=== PATIENT | female | born 1950 | race Caucasian/White ===

== ENCOUNTER → 2016-09-14 | Outpatient (CLI) | payer BC ==
[2016-09-14 09:35] LABS: BASO % 1.5 %; BASO ABS # 0.09 K/uL (0-0.2); COMPLETE YES; EOS % 5.5 %; HEMATOCRIT 39.6 % (37-47); IG% 0.2 %; LYMPH % 23.3 %; LYMPH ABS # 1.36 K/uL (1.2-3.4); MEAN CELL VOLUME 88.8 fL (80-100); MEAN CORPUSCULAR HGB CONC 33.8 g/dl (32-36); MEAN PLATELET VOLUME 9.8 fL (7.4-10.4); MONO % 11.6 %; NEUT % 57.9 %; PLATELET COUNT 244 K/uL (130-400); RED BLOOD COUNT 4.46 M/uL (4.2-5.4); WHITE BLOOD COUNT 5.84 K/uL (4.8-10.8)
[2016-09-14 10:00] LABS: ALT/SGPT 21 U/L (12-78); BLOOD UREA NITROGEN 16 mg/dl (7-18); BUN/CREATININE RATIO 22.2 (10-20); CALCIUM 9.2 mg/dl (8.5-10.1); CARBON DIOXIDE 29 mmol/L (21-32); CHLORIDE 105 mmol/L (98-107); CHOLESTEROL 237 mg/dl (0-200); CREATININE 0.72 mg/dl (0.60-1.20); GLUCOSE 101 mg/dl (70-99); POTASSIUM 3.9 mmol/L (3.5-5.1); SODIUM 141 mmol/L (136-145); TRIGLYCERIDES 73 mg/dl (0-150); VERY LOW DENSITY LIPOPROT CALC 15 mg/dl
[2016-09-14 10:02] LABS: ESTIMATED AVERAGE GLUCOSE 123 mg/dl; HA1C FLAG Normal (Normal)
[2016-09-14 10:09] LABS: ALB/GLOB RATIO 1.1 (0.9-2); ALKALINE PHOSPHATASE 79 U/L (45-117); AST/SGOT 17 U/L (15-37); CHOLESTEROL/HDL RATIO 2.7; HDL CHOLESTEROL 88 mg/dl; LDL CHOLESTEROL CALCULATED 134 mg/dl
[2016-09-15 14:31] LABS: C-REACTIVE PROT HIGHSEN 1.9 MG/L
== END | disposition home or self-care (01) ==
LOC: C.LAB 08:42
PROVIDERS: ATTEND Family Medicine
DX: R73.09 Other abnormal glucose (principal)

== ENCOUNTER → 2016-09-16 | Outpatient (CLI) | payer BC ==
--- NOTE | 2016-09-16 12:49 | MAMMOGRAPHY REPORT ---
BILATERAL DIGITAL SCREENING MAMMOGRAM WITH CAD: 09/16/2016 CLINICAL HISTORY: Routine screening. Patient has no complaints. TECHNIQUE: Current study was also evaluated with a Computer Aided Detection (CAD) system. Bilatera l CC and MLO views were obtained. COMPARISON: Comparison is made to exams dated: 09/16/2015 mammogram, 09/25/2014 mammogram, 09/12/2014 m ammogram, 09/11/2013 mammogram, 09/06/2012 mammogram, and 09/03/2011 mammogram - [facility]. BREAST COMPOSITION: There are scattered areas of fibroglandular density in both breasts. FINDINGS: No suspicious masses, calcifications, or areas of architectural distortion are noted in e ither breast. There has been no significant interval change compared to prior exams. IMPRESSION: ACR BI-RADS CATEGORY 1: NEGATIVE There is no mammographic evidence of malignancy. A 1 year screening mammogram is recommended. The p atient will receive written notification of the results. Approximately 10% of breast cancers are not detected with mammography. A negative mammographic repor t should not delay biopsy if a clinically suggestive mass is present. Julieta Montano M.D. /:09/16/2016 09:12:01 Machine Crater: Jaycee FLOYD(Valerie)(Love), [facility] letter sent: Normal 1/2 BI-RADS Code: ACR BI-RADS Category 1: Negative
== END | disposition home or self-care (01) ==
LOC: C.MAMM 08:49
PROVIDERS: ATTEND Obstetrics & Gynecology
DX: Z12.31 Encounter for screening mammogram for malignant neoplasm of breast (principal)

== ENCOUNTER → 2016-10-01 | Outpatient (CLI) | payer BC ==
[~2016-10-01] MED LIST: GADAVIST IV PRN
--- NOTE | 2016-10-01 15:05 | DIAGNOSTIC IMAGING REPORT ---
MRI OF THE BRAIN WITHOUT AND WITH IV CONTRAST CLINICAL HISTORY: Right temporal lesion. COMPARISON STUDY: March 2013 TECHNIQUE: MRI of the brain was performed from the vertex to the skull base utilizing various T1 and T2 weighted sequences. Following the IV administration of 7 mL of Gadavist contrast, additional enhanced images were obtained. FINDINGS: Sagittal T1, axial diffusion, proton density and T2 weighted axial, coronal FLAIR, and pre and post axial T1-weighted images were acquired. These were supplemented with post gadolinium coronal T1 weighted images. No intra or extra-axial mass lesions are visualized. Axial diffusion-weighted images reveal no evidence of acute or subacute infarction. There is no evidence of ventricular dilatation. Proton density T2-weighted and FLAIR images reveal no significant intraparenchymal signal abnormalities. There are no abnormal flow voids. There is no significant intraparenchymal enhancement. There is a stable 5 mm enhancing T1 and FLAIR bright lesion with thin the inner table of the right temporal calvarium. This is of doubtful clinical significance given the 3 1/2 year stability. IMPRESSION: 1. No acute intracranial findings 2. No evidence of intracranial mass 3. No evidence of acute or subacute infarction 4. Stable 5 mm lesion within the right temporal calvarium. This is not felt to be of clinical significance. Electronically signed by: Dayron Potter M.D. 10/01/2016 3:03 PM Dictated Date/Time: 10/01/2016 2:59 PM
== END | disposition home or self-care (01) ==
LOC: C.MRIBC 13:55
PROVIDERS: ATTEND Family Medicine
DX: G93.9 Disorder of brain, unspecified (principal)

== ENCOUNTER → 2016-10-12 | Outpatient (CLI) | payer BC | END | disposition home or self-care (01) | LOC: C.PAPS 11:29 | PROVIDERS: ATTEND Obstetrics & Gynecology | DX: Z01.419 Encounter for gynecological examination (general) (routine) without abnormal findings (principal); N95.8 Other specified menopausal and perimenopausal disorders ==

== ENCOUNTER → 2017-09-20 | Outpatient (CLI) | payer OTHER ==
--- NOTE | 2017-09-22 07:49 | MAMMOGRAPHY REPORT ---
BILATERAL DIGITAL SCREENING MAMMOGRAM TOMOSYNTHESIS WITH CAD: 09/20/2017 CLINICAL HISTORY: Routine screening. Patient has no complaints. TECHNIQUE: Breast tomosynthesis in addition to standard 2D mammography was performed. Current study was also evaluated with a Computer Aided Detection (CAD) system. COMPARISON: Comparison is made to exams dated: 09/16/2016 mammogram, 09/16/2015 mammogram, 09/12/2014 m ammogram, 09/11/2013 mammogram, 09/06/2012 mammogram - [facility], and 08/16/2008. BREAST COMPOSITION: There are scattered areas of fibroglandular density in both breasts. FINDINGS: The parenchymal pattern is unchanged. No developing mass, architectural distortion or clus ter of suspicious microcalcifications is seen in either breast. IMPRESSION: ACR BI-RADS CATEGORY 2: BENIGN There is no mammographic evidence of malignancy. A 1 year screening mammogram is recommended. The pa tient will receive written notification of the results. Approximately 10% of breast cancers are not detected with mammography. A negative mammographic report should not delay biopsy if a clinically suggestive mass is present. Yesica Brown M.D. ay/:09/20/2017 20:12:33 Cell Plasterer: Tiffani FLOYD(Valerie)(Love), [facility] letter sent: Normal 1/2 BI-RADS Code: ACR BI-RADS Category 2: Benign
== END | disposition home or self-care (01) ==
LOC: C.MAMM 08:44
PROVIDERS: ATTEND Obstetrics & Gynecology
DX: Z12.31 Encounter for screening mammogram for malignant neoplasm of breast (principal)

== ENCOUNTER → 2017-10-25 | Outpatient (CLI) | payer OTHER | END | disposition home or self-care (01) | LOC: C.PAPS 15:35 | PROVIDERS: ATTEND Obstetrics & Gynecology | DX: Z12.4 Encounter for screening for malignant neoplasm of cervix (principal); Z11.51 Encounter for screening for human papillomavirus (HPV); Z87.410 Personal history of cervical dysplasia ==

== ENCOUNTER → 2018-01-30 | Outpatient (CLI) | payer OTHER | END | disposition home or self-care (01) | LOC: C.MAMM 08:40 | PROVIDERS: ATTEND Family Medicine | DX: M81.0 Age-related osteoporosis without current pathological fracture (principal) ==

== ENCOUNTER 2019-12-09 10:10 | Inpatient (IN) ==
[2019-12-09] MEDS ORDERED: methylPREDNISolone 1,000 MG in DEXTROSE 5% 250 ML IV STA (10:27)
[2019-12-09 10:47] LABS: Hematocrit (blood only) 35.8 % (37-47); Hemoglobin 11.9 g/dL (12.0-16.0); Mean Corpuscular Hemoglobin 29.5 pg (25-34); Mean Corpuscular Hgb Conc 33.2 g/dL (32-36); Mean Corpuscular Volume 88.8 fL (80-100); Mean Platelet Volume 9.4 fL (7.4-10.4); Platelet Count 423 K/uL (130-400); RDW Coefficient of Variation 14.6 % (11.5-14.5); RDW Standard Deviation 47.4 fL (36.4-46.3); Red Blood Count 4.03 M/uL (4.2-5.4)
[2019-12-09 11:01] LABS: INR 1.1 (0.9-1.1); Partial Thromboplastin Ratio 1.1; Partial Thromboplastin Time 30.8 Seconds (21.0-31.0); Prothrombin Time 11.1 Seconds (9.0-12.0)
[2019-12-09 11:04] LABS: Alanine Aminotransferase 21 U/L (12-78); Albumin Level 3.2 gm/dl (3.4-5.0); Aspartate Aminotransferase 9 U/L (15-37); BUN Creatinine Ratio 18.5 (10-20); Blood Urea Nitrogen 14 mg/dl (7-18); Calcium 9.4 mg/dl (8.5-10.1); Carbon Dioxide 30 mmol/L (21-32); Chloride 101 mmol/L (98-107); Creatinine Clr Calc Pharmacy 68.8 ml/min; Est GFR (African American) 95.1; Est GFR (Non-African American) 82.1; Glucose 146 mg/dl (70-99); Magnesium 2.3 mg/dl (1.8-2.4); Potassium 3.6 mmol/L (3.5-5.1); Sodium 136 mmol/L (136-145)
--- NOTE | 2019-12-09 11:06 | XRay Report ---
XR chest 1V portable HISTORY: 68 years-old Female stroke eval acute strokelike symptoms COMPARISON: None TECHNIQUE: Portable AP view of the chest FINDINGS: Cardiac silhouette is normal. There is an opacity of the medial right lung base. No pneumothorax, ple ural effusion or overt pulmonary edema. Bones appear grossly intact. IMPRESSION: Medial right lung base opacities suggestive of a prominent epicardial fat pad. Focal area of consolidation is considered less likely. ACT 112: Negative or not required by law. The above report was generated using voice recognition software. It may contain grammatical, syntax o r spelling errors. Electronically signed by: Antonio Nash M.D. 12/09/2019 11:05 AM
[2019-12-09 11:09] LABS: Albumin Globulin Ratio 0.7 (0.9-2); Alkaline Phosphatase 81 U/L (45-117); Basophils # (auto) 0.02 K/uL (0-0.2); Basophils % (auto) 0.1 %; Bilirubin,Total 0.3 mg/dl (0.2-1); Eosinophils # (auto) 0.01 K/uL (0-0.5); Eosinophils % (auto) 0.1 %; Globulin 4.8 gm/dl (2.5-4.0); Immature Granulocytes # (auto) 0.08 K/uL (0.00-0.02); Immature Granulocytes % (auto) 0.5 %; Lymphocytes # (auto) 0.53 K/uL (1.2-3.4); Lymphocytes % (auto) 3.2 %; Monocytes # (auto) 0.32 K/uL (0.11-0.59); Monocytes % (auto) 1.9 %; Neutrophils # (auto) 15.74 K/uL (1.4-6.5); Neutrophils % (auto) 94.2 %; RBC Morphology Unremarkable; Troponin I < 0.015 ng/ml (0-0.045)
--- NOTE | 2019-12-09 11:13 | Emergency Department Note ---
Impression & Plan Vasculitis, CRAO (central retinal artery occlusion), Loss of vision ED Provider Note NAME: BECKY WORKMAN AGE: 68 SEX: F ARRIVES VIA: Walk-In INFORMANT: [Patient] ED PROVIDER(S): Homer Lorenzana MD CHIEF COMPLAINT: Vision loss PLAN: Disposition: Admitted Condition: [Good] MEDICAL DECISION MAKING: Patient presented to the emergency department because of vision loss and findings concerning for central retinal artery occlusion. The patient was directed to the ER by her senior water/wastewater engineer, Dr. Appiah and shellfish harvester, Dr. Salmon. She was in the optometry office today due to visual disturbance in the left eye. She was found to have small clots within the retina on dilated eye exam per her senior water/wastewater engineer. The patient recently had a temporal artery biopsy that showed significant vasculitis. The exact etiology was not obvious. Was not consistent with giant cell arteritis. Multiple eosinophils were noted. After discussion with Dr. Salmon eosinophilic vasculitis was a possibility however the patient CBCs recently did not show a problem with eosinophilia. He recommended initiation of high-dose Solu-Medrol, 1 g. This was administered. The patient underwent a stroke work-up including CT angiography. Further management will be necessary in the hospital. [facility] [place]. Patient was evaluated in the ER and admitted for further treatment. Triage Nursing notes reviewed and agree them. [Additional history obtained from] her shellfish harvester, Dr. Salmon [Prior medical records reviewed] recent temporal artery biopsy pathology report reviewed. Vasculitis noted. Recent blood work reviewed as well. Vital Signs: reviewed and remarkable for [no significant abnormalities] Differential diagnosis: Vasculitis, CVA, TIA, infection, dehydration, metabolic abnormality, hypo/hyperglycemia, electrolyte disturbance, anemia, hypoxia, cardiac sources, intracerebral event, toxicologic, neurologic, as well as other pathologies. ER treatment provided: Saline hydration Solu-Medrol 1 g Oral Protonix for gastric protection Diagnostics interpreted by me: ECG: Rate: 74 Rhythm:Normal sinus [place]:Normal QRS: Right bundle branch block. Left anterior fascicular block. ST segements:No elevation or depression Other:No PACs or PVCs Cardiac Monitoring: Cardiac monitoring ordered by me: The patient was placed on continuous cardiac monitoring and observed. It revealed a normal sinus rhythm at 77 beats per minute without ectopy or evidence of dysrhythmia. Laboratory studies: [See below] mild leukocytosis on CBC I suspect this is from her steroid use. Chemistry panel unremarkable. Imaging studies: Chest x-ray negative for acute process. Head and neck CT angiogram showed some mild vascular narrowing but no acute occlusions. No gross abnormalities. I refer you to the EMR for further details. Consultation(s): [facility] [place]. HPI: 68/F arrives for evaluation of vision loss and a diagnosis of vasculitis and central retinal artery occlusion by optometry and rheumatology. The patient was being treated for possible PMR last fall. She also developed a Quesada's palsy. She was on steroids at that time. She was hesitant to take long-term st eroids due to the effects on the blood sugar. The patient had a temporal artery biopsy done recently and it showed a significant vasculitis. Profound number of eosinophils lymphocytes noted. There were no giant cells noted. She was having visual disturbance today and was seen by her senior water/wastewater engineer at [facility]. 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 Optometry and rheumatology directed her to the ER for admission, high-dose steroids, and further work-up. Pt denies LOC, headache, fevers, chills, diaphoresis, neck pain, chest pain, breathing difficulties, nausea, vomiting, abdominal pain, back pain, melena, hematochezia, urinary symptoms, numbness, weakness, lymphadenopathy, rash, or other complaints. ROS: See above HPI for pertinent positives & negatives. A total of [10] systems reviewed and were otherwise negative. PAST MEDICAL HISTORY:[See Below] PMR PAST SURGICAL HISTORY:[See Below]temporal artery biopsy FAMILY HISTORY:[See Below] SOCIAL HISTORY:[See Below] HOME MEDICATIONS:[See Below] ALLERGIES:[See Below] VITALS:[See Below] PHYSICAL EXAMINATION: GENERAL: Awake, alert, well appearing, no distress HENT: Normocephalic, atraumatic. Oropharynx unremarkable. Temporal artery biopsy sites bilaterally are healing well without signs of infection. EYES: PERRL. EOMI. Normal conjunctiva. Sclera non-icteric. NECK: Supple. Normal inspection. Non-tender. No nuchal rigidity. FROM. No bruit. RESPIRATORY: Breath sounds equal. No wheezes. No rhonchi. Normal respiratory effort. CARDIAC: Normal rate. Regular rhythm. No murmurs. No rubs. No JVD. GI: Soft, non distended. No tenderness to palpation. No rebound or guarding. No masses. RECTAL: Deferred. MUSCULOSKELETAL: Unremarkable. No edema. No discoloration. Gross motor strength symmetric. NEURO: Cranial nerves 2-12 grossly intact. Normal sensorium. No sensory or motor deficits noted. Speech normal. No pronator drift. Normal rapid alternating movements. Normal [id number]. SKIN: No rash or jaundice noted. LYMPH: No adenopathy. ED COURSE: [Critical Care:] [None] Homer Lorenzana MD Past Med/Surg History Social History Preferred Language: French Communication Ability: Effective Marine Drafter Required: No Beliefs That Will Affect Care: None marital status: Current Living Situation: Spouse current occupational status: retired Feels Safe at Home: Yes Smoking Status: Never smoker Second Hand Exposure: No ; Hx Alcohol Use: Yes Alcohol type: wine Hx Substance Use: No Allergies Allergies Allergy/AdvReac Type Severity Reaction Status Date / Time nickel Allergy Mild Redness of Verified 12/09/19 12:02 Skin Beta-Blockers AdvReac Intermediate Hypotension Verified 12/09/19 12:02 (Beta-Adrenergic Bloc brimonidine [From Combigan] AdvReac Intermediate Hypotension Verified 12/09/19 12:02 dorzolamide [From Cosopt] AdvReac Intermediate Hypotension Verified 12/09/19 12:02 timolol [From Combigan] AdvReac Intermediate Hypotension Verified 12/09/19 12:02 MSG Allergy Intermediate HEAD Uncoded 12/09/19 12:02 CONGESTION Home Meds Home Medications Medication Instructions Recorded Confirmed multivitamin 1 tab PO QAM 03/29/19 12/09/19 Azopt 1 drp OPR TID 05/22/19 12/09/19 Vyzulta 1 drp OPB HS 05/22/19 12/09/19 cholecalciferol (vitamin D3) 5,000 unit PO QAM 05/22/19 12/09/19 [Vitamin D3] cyanocobalamin (vitamin B-12) 1,000 mcg PO QAM 05/22/19 12/09/19 [Vitamin B-12] aspirin [Aspirin Low Dose] 81 mg PO HS 07/19/19 12/09/19 omega-3 acid ethyl esters 1 cap PO QAM 07/19/19 12/09/19 prednisone 60 mg PO QAM 12/05/19 12/09/19 Magnesium Malate 1 cap PO BID 12/09/19 12/09/19 acetaminophen [Tylenol 8 Hour] 650 mg PO Q12H PRN 12/09/19 12/09/19 Results & Data (ED) Vital Signs Vital Signs - 24 hr 12/09/19 10:24 12/09/19 10:34 12/09/19 11:45 Temperature 36.7 C Temperature Source Oral Pulse Rate 83 74 Pulse Rate from SpO2 Sensor 74 Respiratory Rate 16 14 Blood Pressure 169/73 H 131/71 Blood Pressure Mean 105 79 Pulse Oximetry 97 97 97 Oxygen Delivery Method Room Air Room Air Room Air Sepsis Recent Fever Within 48 Hours No Sepsis New/Unexplained Change in Mental Status No Sepsis Action Taken by Nursing No Action Required 12/09/19 12:00 12/09/19 12:30 Temperature Temperature Source Pulse Rate 74 82 Pulse Rate from SpO2 Sensor 74 80 Respiratory Rate 17 15 Blood Pressure 142/75 H 153/72 H Blood Pressure Mean 90 97 Pulse Oximetry 98 95 Oxygen Delivery Method Room Air Room Air Sepsis Recent Fever Within 48 Hours Sepsis New/Unexplained Change in Mental Status Sepsis Action Taken by Nursing Laboratory Data Result diagrams: 12/09/19 10:29 12/09/19 10:29 Lab Results 12/09/19 12/09/19 12/09/19 Range/Units 10:29 10:29 10:29 WBC 16.70 H (4.8-10.8) K/uL RBC 4.03 L (4.2-5.4) M/uL Hgb 11.9 L (12.0-16.0) g/dL Hct 35.8 L (37-47) % MCV 88.8 (80-100) fL MCH 29.5 (25-34) pg MCHC 33.2 (32-36) g/dL RDW Std Deviation 47.4 H (36.4-46.3) fL RDW Coeff of Antony 14.6 H (11.5-14.5) % Plt Count 423 H (130-400) K/uL MPV 9.4 (7.4-10.4) fL Immature Gran % (Auto) 0.5 % Neut % (Auto) 94.2 % Lymph % (Auto) 3.2 % [place] % (Auto) 1.9 % Eos % (Auto) 0.1 % Baso % (Auto) 0.1 % Immature Gran # (Auto) 0.08 H (0.00-0.02) K/uL Neut # (Auto) 15.74 H (1.4-6.5) K/uL Lymph # (Auto) 0.53 L (1.2-3.4) K/uL [place] # (Auto) 0.32 (0.11-0.59) K/uL Eos # (Auto) 0.01 (0-0.5) K/uL Baso # (Auto) 0.02 (0-0.2) K/uL RBC Morphology Unremarkable PT 11.1 (9.0-12.0) Seconds INR 1.1 (0.9-1.1) APTT 30.8 (21.0-31.0) Seconds PTT Ratio 1.1 Sodium 136 (136-145) mmol/L Potassium 3.6 (3.5-5.1) mmol/L Chloride 101 (98-107) mmol/L Carbon Dioxide 30 (21-32) mmol/L Anion Gap 5.0 (3-11) BUN 14 (7-18) mg/dl Creatinine 0.74 (0.6-1.2) mg/dl Est Cr Clr Drug Dosing 68.8 ml/min Est GFR ( Amer) 95.1 Est GFR (Non-Af Amer) 82.1 BUN/Creatinine Ratio 18.5 (10-20) Glucose 146 H (70-99) mg/dl Calcium 9.4 (8.5-10.1) mg/dl Magnesium 2.3 (1.8-2.4) mg/dl Total Bilirubin 0.3 (0.2-1) mg/dl AST 9 L (15-37) U/L ALT 21 (12-78) U/L Alkaline Phosphatase 81 (45-117) U/L Troponin I < 0.015 (0-0.045) ng/ml Total Protein 8.0 (6.4-8.2) gm/dl Albumin 3.2 L (3.4-5.0) gm/dl Globulin 4.8 H (2.5-4.0) gm/dl Albumin/Globulin Ratio 0.7 L (0.9-2) Urine Color Urine Appearance (Clear) Urine pH (4.5-7.5) Ur Specific [place] (1.000-1.030) Urine Protein (Negative) Urine Glucose (UA) (Negative) Urine Ketones (Negative) Urine Blood (Negative) Urine Nitrite (Negative) Urine Bilirubin (Negative) Urine Urobilinogen (Negative) Ur Leukocyte Esterase (Negative) Blood Type Antibody Screen 12/09/19 12/09/19 Range/Units 10:58 11:07 WBC (4.8-10.8) K/uL RBC (4.2-5.4) M/uL Hgb (12.0-16.0) g/dL Hct (37-47) % MCV (80-100) fL MCH (25-34) pg MCHC (32-36) g/dL RDW Std Deviation (36.4-46.3) fL RDW Coeff of Antony (11.5-14.5) % Plt Count (130-400) K/uL MPV (7.4-10.4) fL Immature Gran % (Auto) % Neut % (Auto) % Lymph % (Auto) % [place] % (Auto) % Eos % (Auto) % Baso % (Auto) % Immature Gran # (Auto) (0.00-0.02) K/uL Neut # (Auto) (1.4-6.5) K/uL Lymph # (Auto) (1.2-3.4) K/uL [place] # (Auto) (0.11-0.59) K/uL Eos # (Auto) (0-0.5) K/uL Baso # (Auto) (0-0.2) K/uL RBC Morphology PT (9.0-12.0) Seconds INR (0.9-1.1) APTT (21.0-31.0) Seconds PTT Ratio Sodium (136-145) mmol/L Potassium (3.5-5.1) mmol/L Chloride (98-107) mmol/L Carbon Dioxide (21-32) mmol/L Anion Gap (3-11) BUN (7-18) mg/dl Creatinine (0.6-1.2) mg/dl Est Cr Clr Drug Dosing ml/min Est GFR ( Amer) Est GFR (Non-Af Amer) BUN/Creatinine Ratio (10-20) Glucose (70-99) mg/dl Calcium (8.5-10.1) mg/dl Magnesium (1.8-2.4) mg/dl Total Bilirubin (0.2-1) mg/dl AST (15-37) U/L ALT (12-78) U/L Alkaline Phosphatase (45-117) U/L Troponin I (0-0.045) ng/ml Total Protein (6.4-8.2) gm/dl Albumin (3.4-5.0) gm/dl Globulin (2.5-4.0) gm/dl Albumin/Globulin Ratio (0.9-2) Urine Color Yellow Urine Appearance Clear (Clear) Urine pH 7.5 (4.5-7.5) Ur Specific [place] 1.008 (1.000-1.030) Urine Protein Negative (Negative) Urine Glucose (UA) Negative (Negative) Urine Ketones 1+ H (Negative) Urine Blood Negative (Negative) Urine Nitrite Negative (Negative) Urine Bilirubin Negative (Negative) Urine Urobilinogen Negative (Negative) Ur Leukocyte Esterase Negative (Negative) Blood Type A Positive Antibody Screen NEGATIVE Administered Medications Sodium Chloride (Nss 1000ml) 1,000 mls @ 50 mls/hr IV .Q20H NICOLA Stop: 01/08/20 10:29 Last Admin: 12/09/19 11:17 Dose: 50 mls/hr Documented by: [id number] Ioversol (Optiray 320 125ml) 120 ml IV ONCE PRN PRN Reason: Interaction Checking Stop: 12/13/19 11:30 Last Admin: 12/09/19 11:32 Dose: 120 ml Documented by: [id number] Discontinued Medications Methylprednisolone 1,000 mg/ (Dextrose) 266 mls @ 266 mls/hr IV NOW STA Stop: 12/09/19 11:26 Last Infusion: 12/09/19 12:13 Dose: 0 mls/hr Documented by: [id number] Admin: 12/09/19 11:13 Dose: 266 mls/hr Documented by: [id number] Discharge Plan Visit Data Chief Complaint: Stroke/CVA Symptoms Stated Complaint: DOC REF,POSSIBLE STROKE ED Provider: Homer Lorenzana Discharge Problem: Vasculitis, CRAO (central retinal artery occlusion), Loss of vision Forms Stand Alone Forms: My [facility] Prescriptions Prescriptions: No Action multivitamin [Daily Multi-Vitamin] tablet 1 tab PO QAM RF: 0 cyanocobalamin (vitamin B-12) [Vitamin B-12] 1,000 mcg Tablet 1,000 mcg PO QAM RF: 0 cholecalciferol (vitamin D3) [Vitamin D3] 125 mcg (5,000 unit) Tablet 5,000 unit PO QAM RF: 0 Vyzulta 0.024 % Drops 1 drp OPB HS RF: 0 Azopt 1 % Drops,Suspension 1 drp OPR TID RF: 0 aspirin [Aspirin Low Dose] 81 mg Tablet,Delayed Release (Dr/Ec) 81 mg PO HS RF: 0 omega-3 acid ethyl esters 1 gram Capsule 1 cap PO QAM RF: 0 prednisone 20 mg Tablet 60 mg PO QAM RF: 0 Magnesium Malate 1 cap PO BID RF: 0 acetaminophen [Tylenol 8 Hour] 650 mg Tablet Extended Release 650 mg PO Q12H PRN (Reason: Pain) RF: 0
[2019-12-09] MEDS: SODIUM CHLORIDE 0.9% 1000ML 1,000 ML IV SCH (11:17)
[2019-12-09] MEDS ORDERED: OPTIRAY 320 125ml IV PRN (11:31)
[2019-12-09 11:32] LABS: Appearance Urine Clear (Clear); Bilirubin Urine Negative (Negative); Blood Urine Negative (Negative); Color Urine Yellow; Glucose Urine UA Negative (Negative); Ketones Urine 1+ (Negative); Leukocyte Esterase Urine Negative (Negative); Nitrite Urine Negative (Negative); Protein Urine Negative (Negative); Specific Gravity Urine 1.008 (1.000-1.030); Urobilinogen Urine Negative (Negative); pH Urine 7.5 (4.5-7.5)
--- NOTE | 2019-12-09 11:56 | CT Scan Report ---
CT head/brain wo con CLINICAL HISTORY: 68 years-old Female with Stroke evaluation . Acute strokelike symptoms TECHNIQUE: Multiple axial CT images of the head were obtained without contrast. A dose lowering tech nique was utilized adhering to the principles of ALARA. COMPARISON: CTA head neck of same day, head CT 07/19/2019. FINDINGS: No acute intracranial hemorrhage, midline shift, intracranial mass, hydrocephalus, territorial ischem ia or abnormal extra-axial collection. Mild age-related involutional changes. The calvarium is intact. The paranasal sinuses, mastoid air cells, and middle ear cavities are clear . IMPRESSION: No acute intracranial abnormality. ACT 112: Negative or not required by law. The above report was generated using voice recognition software. It may contain grammatical, syntax o r spelling errors. Electronically signed by: Antonio Nash M.D. 12/09/2019 11:55 AM
--- NOTE | 2019-12-09 12:22 | CT Scan Report ---
CT angio neck with con, CT angio head w con CLINICAL HISTORY: 68 years-old Female with Stroke evaluation. Acute strokelike symptoms COMPARISON STUDY: Head CT of same day TECHNIQUE: Following the IV administration of 1 20 mL of Optiray 320, CT angiogram of the head and ne ck was performed from the aortic arch to the skull apex. Images are reviewed in the axial, sagittal, and coronal planes. 3-D MIPS images are created and assessed. IV contrast was administered without co mplication. All measurements were calculated based on NASCET criteria. A dose lowering technique was utilized adhering to the principles of ALARA. CT DOSE: 1119.42 mGy.cm FINDINGS: The imaged opacified pulmonary arterial tree is unremarkable. Three-vessel morphology of the thoracic aortic arch. There is patency of the innominate artery and image bilateral subclavian arteries. Joseph nt common carotid arteries. Mild mixed plaque of the carotid bulbs and proximal internal carotid dena hira without high-grade stenosis. The middle cerebral arteries are patent. The anterior cerebral dena hira and anterior communicating artery are also unremarkable and patent. Codominant vertebral arterie s. Multifocal mild and moderate luminal narrowing of the vertebral arteries. Diminutive basilar arter y with origin of the posterior cerebral arteries. No aneurysm, dissection, high-grade stenosis or proximal branch occlusion. Cerebral venous sinuses are patent. No abnormal intracranial enhancemen t. Lung apices are clear. No pneumothorax. Unremarkable thyroid. Patent airway. No prevertebral soft tis huseyin swelling or adenopathy. IMPRESSION: 1. No aneurysm, dissection, high-grade stenosis or proximal branch occlusion. 2. Moderate multifocal luminal narrowing of the vertebral arteries. 3. Mild mixed plaque of the carotid bulbs and proximal internal carotid arteries results in less than 50% stenosis bilaterally. ACT 112: Negative or not required by law. The above report was generated using voice recognition software. It may contain grammatical, syntax o r spelling errors. Electronically signed by: Antonio Nash M.D. 12/09/2019 12:21 PM
[2019-12-09] MEDS ORDERED: PANTOprazole 40 MG TAB PO ONE (13:30)
[2019-12-09] MEDS ORDERED: CLOPIDOGREL BISULFATE 300 MG TAB PO STA (13:59)
--- NOTE | 2019-12-09 13:59 | History & Physical Report ---
Date of Service December 09, 2019 Assessment & Plan (1) CRAO (central retinal artery occlusion): Plavix 300mg loading dose now Continue ASA Hold off statin given likelihood of vasculitis causing symptoms Complete stroke workup with: Lipid panel and HbA1C in AM MRI brain w/o contrast TTE Consult neurology (2) Vasculitis: Interesting background to this with PMR diagnosis, recent Quesada's palsy, no giant cells on biopsy, rather eosinophilia without systemic skin findings, asthma, and UA unremarkable. Continue Methylprednisone 1g IV daily - discuss further treatment with Dr Salmon BSG ACHS and PPI while on high dose steroids Follow up outpatient labs with Dr Salmon (3) Loss of vision: Intermittent, as above. (4) Glaucoma: Continue routine meds (5) RBBB: with bifascicular block, no syncopal episodes. Not new. Evaluated by cardiology as outpatient and nothing to do. (6) DVT prophylaxis: Lovenox 40mg SQ daily History of Present Illness Chief Complaint: Central retinal artery occlusion Primary Care Provider: Kingsley Holguin MD Kymberly Colunga is a 68 year old female who presents to the ER on the advice of her feed mill tender (Dr Appiah) and optometry professor (Dr Salmon) with left sided vision loss with diagnosis of left retinal artery occlusion on slit lamp examination at her ophthalmology appointment today. Patient has a complex history but regarding the vision loss this is intermittent. Lasts for 5-15 minute spells. Just in her left eye. First episode at 5pm yesterday. Starts with an "aura", then notes her vision dims to complete blackness, she then has "firecrackers" in her vision and it dramatically returns to her baseline. She currently has no vision loss when seen in the ER. She denies any associated hearing or speech changes. No facial droop, extremity weakness or change in sensation. Last night she called her feed mill tender and recommended calling again in the morning and went in for a visit. On arrival all her vision was normal for the first 30 minutes. As soon as her eyes were dilated her symptoms started again. As per note with the patient. Dr Appiah noted clots in the retinal arteries and findings consistent with central retinal artery occlusion. He discussed with Dr Salmon and advised coming to the ER. As per discussion with the ER physician with Dr Salmon. Plan is to treat with high dose IV steroids as patient already taking 60mg prednisone. Of note she does have a history of Lasik surgery and has monocular vision using her left eye for near sited reading and right eye for distance. As a background she has a recent history of a number of events leading up to this. Initially she had a Yoga injury in March while twisting and had ongoing thoracic back pain which never went away since then. Initially underwent PT without improvement. Followed up with Dr Holguin in June and arranged for rheumatology appointment. By the time she followed up with Dr Salmon in September she was feeling significantly fatigued with associated stiffness and elevated ESR therefore advised to start on prednisone due to concern for PMR. She waiting until mid October to start this as she was concerned about the side effects. This helped her fatigue and stiffness but then started feeling bumps on her arteries on left mormonism. She discussed with Dr Gomez over the phone who returned her message and therefore started her on prednisone 60mg PO daily which she has been taking since November 29 and set up for temporal artery biopsy. This was performed on December [address] Villagomez with pathology in EHR showing massive transmural and surrounding inflammation of both left and right biopsies with eosinophilia. Interestingly she has not history of asthma or serum eosinophilia. She does note following up virtually with Dr Salmon regarding these results and had lab work on Tuesday but results of this are not back yet and I do not have the details on the exact lab work performed. As a side note she also had a tick bite in April in [place], treated with 2 weeks of doxycyline at that time and also given TDap at an urgent care, unclear if this was related to her muscle pains above as it all happened around the same time. She was also having intermittent right sided abdominal pain in March and subsequent workup showed large ovarian cyst which was subsequently operated on in May by Dr Cesar. This was benign on pathology. 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 Allergies Allergy/AdvReac Type Severity Reaction Status Date / Time nickel Allergy Mild Redness of Verified 12/09/19 12:02 Skin Beta-Blockers AdvReac Intermediate Hypotension Verified 12/09/19 12:02 (Beta-Adrenergic Bloc brimonidine [From Combigan] AdvReac Intermediate Hypotension Verified 12/09/19 12:02 dorzolamide [From Cosopt] AdvReac Intermediate Hypotension Verified 12/09/19 12:02 timolol [From Combigan] AdvReac Intermediate Hypotension Verified 12/09/19 12:02 MSG Allergy Intermediate HEAD Uncoded 12/09/19 12:02 CONGESTION Home Medications Home Medications Medication Instructions Recorded Confirmed Type multivitamin 1 tab PO QAM 03/29/19 12/09/19 History Azopt 1 drp OPR TID 05/22/19 12/09/19 History Vyzulta 1 drp OPB HS 05/22/19 12/09/19 History cholecalciferol (vitamin D3) 5,000 unit PO QAM 05/22/19 12/09/19 History [Vitamin D3] cyanocobalamin (vitamin B-12) 1,000 mcg PO QAM 05/22/19 12/09/19 History [Vitamin B-12] aspirin [Aspirin Low Dose] 81 mg PO HS 07/19/19 12/09/19 History omega-3 acid ethyl esters 1 cap PO QAM 07/19/19 12/09/19 History prednisone 60 mg PO QAM 12/05/19 12/09/19 History Magnesium Malate 1 cap PO BID 12/09/19 12/09/19 History acetaminophen [Tylenol 8 Hour] 650 mg PO Q12H PRN 12/09/19 12/09/19 History Past Med/Surg History Social History Preferred Language: Jamaican Communication Ability: Effective Vertical Punch Operator Required: No Beliefs That Will Affect Care: None marital status: Current Living Situation: Spouse current occupational status: retired Other Information That Helps Us Care for You: No Feels Safe at Home: Yes Safety Concerns: Feels Safe At This Time Smoking Status: Never smoker Second Hand Exposure: No ; Hx Alcohol Use: Yes Alcohol type: wine Hx Substance Use: No Review of Systems Review of Systems: All systems reviewed & are unremarkable except as noted in HPI & below Physical Exam Constitutional: well developed and well nourished; no acute distress wearing sunglasses Eyes: normal visual spence by confrontation, + anicteric sclerae, EOM intact bilaterally and + abnormal pupil size (dilated, reaction not performed as this precipitates her vision loss) Gross visual acuity normal b/l ENMT: external ear and nose normal, oropharynx normal Neck: trachea midline, no thyromegaly Respiratory: normal respiratory effort, lungs clear to auscultation Cardiovascular: RRR, no murmur, no edema Gastrointestinal (Abdomen): normal bowel sounds, soft, nontender, no hepatosplenomegaly Musculoskeletal: no cyanosis or clubbing, extremities motor strength 5/5 Skin: no rashes, warm and dry Neurologic: CN's II-XI intact bilaterally, moves all extremities and awake; no focal motor deficits and not confused Speech / Cognition: normal speech Motor/Sensory: no tremor, no pronator drift and no sensory deficit Psychiatric: A+Ox3, euthymic affect Genitourinary: no CVA tenderness Lymphatic: no cervical or axillary lymphadenopathy Results & Data Results & Data ([facility]) Vital Signs (Past 12 Hours) Vital Signs Temp Pulse Resp BP Pulse Ox 12/09/19 12:30 82 15 153/72 H 95 12/09/19 12:00 74 17 142/75 H 98 12/09/19 11:45 74 14 131/71 97 12/09/19 10:34 97 12/09/19 10:24 36.7 C 83 16 169/[address] head/brain wo con IMPRESSION: No acute intracranial abnormality. CT angio neck with con, CT angio head w con IMPRESSION: 1. No aneurysm, dissection, high-grade stenosis or proximal branch occlusion. 2. Moderate multifocal luminal narrowing of the vertebral arteries. 3. Mild mixed plaque of the carotid bulbs and proximal internal carotid arteries results in less than 50% stenosis bilaterally. ECG Indication: other (CVA) Rate (beats per minute): 74 Rhythm: normal sinus Findings: + LAFB and + RBBB Comparison ECG Date: from (12/09/2019) Change: the following changes noted (07/19/2019) Code Status & VTE Plan Code Status Full VTE Prophylaxis Plan VTE Prophylaxis will be ordered: Yes PG Care Time/CCT Total # of Minutes Spent Total Time Spent with Patient: Total time spent is greater than 50% in coordination of care (as documented) at patient's floor/unit and/or counseling patient: Coding Level of Care Code 07065 Initial Inpt Care Lvl 3 Diagnoses CRAO (central retinal artery occlusion) H34.10 Vasculitis I77.6 Loss of vision H54.7 Glaucoma H40.9 RBBB I45.10 DVT prophylaxis Z29.9
[2019-12-09] MEDS ORDERED: BRINZOLAMIDE (AZOPT) OPS 10 ML BTL OPR SCH (15:50)
[2019-12-09] MEDS ORDERED: PHARMACIST DISCHARGE MED REC CONSULT PRN (15:50)
[2019-12-09] MEDS: NYSTATIN SUSP 500,000 U/5 ML UDC PO SCH ×2 (17:06→20:29)
[2019-12-09] MEDS: DOCUSATE SODIUM 100 MG CAP PO SCH (20:26)
[2019-12-09] MEDS: ASPIRIN 81 MG ECTAB PO SCH (20:27)
[2019-12-09] MEDS: ENOXAPARIN INJ 40 MG/0.4 ML SYR SQ SCH (20:28)
[2019-12-09] MEDS: AZOPT OPR SCH (20:30)
[2019-12-09] MEDS: VYZULTA OP SCH (20:31)
[2019-12-09] MEDS ORDERED: MAGNESIUM MALATE PO SCH (21:00)
[2019-12-10 07:08] LABS: Basophils # (auto) 0.01 K/uL (0-0.2); Basophils % (auto) 0.1 %; Hemoglobin 11.8 g/dL (12.0-16.0); Immature Granulocytes % (auto) 0.7 %; Lymphocytes # (auto) 1.32 K/uL (1.2-3.4); Lymphocytes % (auto) 9.4 %; Mean Corpuscular Hemoglobin 28.7 pg (25-34); Mean Corpuscular Hgb Conc 32.8 g/dL (32-36); Mean Corpuscular Volume 87.6 fL (80-100); Mean Platelet Volume 9.8 fL (7.4-10.4); Monocytes # (auto) 0.77 K/uL (0.11-0.59); Monocytes % (auto) 5.5 %; Neutrophils # (auto) 11.86 K/uL (1.4-6.5); Neutrophils % (auto) 84.3 %; Platelet Count 449 K/uL (130-400); RDW Coefficient of Variation 14.7 % (11.5-14.5); RDW Standard Deviation 46.9 fL (36.4-46.3); Red Blood Count 4.11 M/uL (4.2-5.4); White Blood Count 14.06 K/uL (4.8-10.8)
[2019-12-10 07:30] LABS: Estimated Average Glucose 128 mg/dl; Hemoglobin A1C 6.1 % (4.5-5.6)
--- NOTE | 2019-12-10 07:44 | Magnetic Resonance Report ---
MRI OF THE BRAIN WITHOUT CONTRAST CLINICAL HISTORY: Left central retinal artery occlusion ?CVA COMPARISON STUDY: CT scan dated 12/09/2019, MRI dated 10/01/2016 FINDINGS: Sagittal T1, axial diffusion, proton density and T2 weighted axial, coronal FLAIR, and axial T1-weigh ga images were acquired. No intra or extra-axial mass lesions are visualized Axial diffusion-weighted images reveal no evidence of acute or subacute infarction. There is no evidence of ventricular dilatation. Proton density T2-weighted and FLAIR images reveal no significant intraparenchymal signal abnormaliti es. There is a stable 5 mm T1 and T2 bright lesion within the right parietal calvarium. This is of do ubtful acute clinical significance. There are no abnormal flow voids. IMPRESSION: 1. No acute intracranial findings 2. No evidence of acute or subacute infarction 2. No evidence of intracranial mass. ACT 112: Negative or not required by law. Electronically signed by: Dayron Potter M.D. 12/10/2019 7:43 AM
[2019-12-10 07:46] LABS: BUN Creatinine Ratio 22.7 (10-20); Calcium 9.3 mg/dl (8.5-10.1); Creatinine Clr Calc Pharmacy 69.7 ml/min; Est GFR (African American) 96.7; Est GFR (Non-African American) 83.4; Potassium 3.8 mmol/L (3.5-5.1)
--- NOTE | 2019-12-10 08:14 | Hospitalist Progress Note ---
Date of Service December 10, 2019 Assessment & Plan (1) CRAO (central retinal artery occlusion): CRAO ruied out, consider vasculitis and vasospasm Plavix 300mg loading dose and now continue on 75 mg a day Hold off statin as after discussion the pt does not wish to be on a statin u nless stroke is confirmed HbA1C 6.1--> caution with a rise while on steroids, Rheumatology will try to transition to a biologic agent as soon as able MRI brain 12/10/19 IMPRESSION: 1. No acute intracranial findings 2. No evidence of acute or subacute infarction 2. No evidence of intracranial mass CTA 12/07/19 IMPRESSION: 1. No aneurysm, dissection, high-grade stenosis or proximal branch occlusion. 2. Moderate multifocal luminal narrowing of the vertebral arteries. 3. Mild mixed plaque of the carotid bulbs and proximal internal carotid arteries results in less than 50% stenosis bilaterally. TTE pending Consult neurology feels this is still more consistent with vasculitis and possible vasospasm, no other new recommendation at this time (2) Vasculitis: Methylprednisone 1g IV daily x 3 days BSG ACHS while on high dose steroids Follow up outpatient labs I spoke with Dr Salmon recommending 1 gm a day for 3 days then 60 mg prednisone a day (3) Loss of vision: Intermittent, resolved (4) Glaucoma: Continue routine meds Admission and Anticipated Discharge Date Admission Date: December 09, 2019 Subjective this pt did have intermittent symptoms with transient vision changes but now resolved, the pt otherwise has no other issues at this time her temporal artery site. Review of Systems Review of Systems: Mild distress and fatigue no headache, transient dimming of vision to left eye now resolved no speech or swallowing issues no chest pain, pressure or palpitations no shortness of breath, cough or wheezes no abdominal pain, nausea or vomiting, diarrhea or constipation no dysuria, hematuria or frequency no focal joint pain or swelling no back pain, CVA tenderness or radicular pain no bruising, bleeding or rashes no focal signs of weakness or numbness or altered sensation no complaints or anxiety or depression. Physical Exam Physical Exam: The patient appeared well nourished and normally developed. Vital signs as documented. Head exam is normocephalic atraumatic no scleral icterus Neck is without JVD, thyromegaly, or carotid bruits. Lungs are clear to auscultation, no focal loss of breath sounds Cardiac exam, Rhythm is regular.. No murmurs, rubs or gallops. Abdominal exam reveals normal bowel sounds, soft non tender, no masses Extremities are nonedematous and both pedal pulses are normal. Neurologic exam is alert and oriented, no focal loss of strength or sensation Skin is without bruises or rashes with the exception of the right temporal artery biopsy site Psychologically is without concerns for anxiety or depression Results & Data Results & Data ([facility]) Vital Signs (Past 12 Hours) Vital Signs Temp Pulse Resp BP Pulse Ox 12/10/19 07:08 98.4 F 48 L 18 144/68 H 96 12/10/19 03:00 97.5 F L 63 18 130/77 97 12/09/19 23:39 97.5 F L 56 L 14 142/69 H 97 PG Care Time/CCT Total # of Minutes Spent Total Time Spent with Patient: Total time spent is greater than 50% in gsa coordinator rdination of care (as documented) at patient's floor/unit and/or counseling patient: Coding Level of Care Code 63037 Subseq Hosp Care Lvl 3 Diagnoses CRAO (central retinal artery occlusion) H34.10 Vasculitis I77.6 Loss of vision H54.7 Glaucoma H40.9
[2019-12-10] MEDS: NYSTATIN SUSP 500,000 U/5 ML UDC PO SCH ×4 (09:18→20:56)
[2019-12-10] MEDS: DOCUSATE SODIUM 100 MG CAP PO SCH ×2 (09:18→20:56)
[2019-12-10] MEDS: CHOLECALCIFEROL 1,000 UNITS 25 MCG TAB PO SCH (09:18)
[2019-12-10] MEDS: OMEGA-3 (PURIFIED FISH OIL) 1 GM CAP PO SCH (09:19)
[2019-12-10] MEDS: PANTOprazole 40 MG TAB PO SCH (09:19)
[2019-12-10] MEDS: MULTIVITAMIN TAB PO SCH (09:19)
[2019-12-10] MEDS: CYANOCOBALAMIN 500 MCG TABLET (VITAMIN B-12) PO SCH (09:19)
[2019-12-10] MEDS: AZOPT OPR SCH ×3 (09:20→20:56)
--- NOTE | 2019-12-10 09:24 | Neurology Consultation ---
Date of Consultation December 10, 2019 Assessment & Plan (1) Loss of vision: (2) Vasculitis: This patient has had markedly elevated sed rate and a positive temporal artery biopsy last week consistent with arteritis of uncertain cause. The biopsy shows eosinophils, suggesting eosinophilic vasculitis, but CBC does not have elevated eosinophils. She was put on 60 mg a day prednisone which helped some symptoms of fatigue but then she was having intermittent episodes of left eye dimming and flashing lights lasting up to 5 minutes. Her vision returned to normal each time. The prop drawer, Dr. Appiah, saw boxcarring" in the left eye arteries after dilation and not on the right. What he saw he felt was significant for impending central retinal artery occlusion. Patient was already on 81 mg aspirin tablet daily and was given a loading dose of clopidogrel in the emergency room. She was also given 1 g of Solu-Medrol IV. She had no further eye episodes until the time of her MRI in which she had 1 episode in the MRI and 1 shortly thereafter at about 0100 on December 09. She had 1 during my evaluation. Her vision is back to normal and she has no other neurologic focal deficits, meningeal signs, or encephalopathy. Her MRI was quite normal and her CT angiography showed some changes in the vertebral arteries consistent with arteritis but not in the head. There is no source of emboli. She had some hypertension while in the emergency room improved currently. I cannot exclude vaso spasm causing her left eye symptoms. Recommendations: 1. 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 2. Continue with Plavix 75 mg daily +81 mg aspirin tablet daily for now. 3. I see no need for additional neurologic testing at this time although she needs an echocardiogram and imaging of the aortic arch and great vessels to see if there is any source of embolus. MR angiography would not be any better than CT angiography that we already obtain. There is no need for an LP. 4. Consider verapamil if she needs a treatment for blood pressure as this is excellent for prevent vasospasm. 5. Monitor for steroid side effects including increased blood pressure, increased glucose, increased white count as well as GI issues. 6. Follow up with her retinal specialist. Overall, I spent a total of 155 minutes with this case, including review of records, review of MRI films, direct evaluation the patient at bedside, and discussing the case with the patient and RN at bedside, discussion of films with Dr. Nash, discussion of her eye exam with Dr. Appiah, and discussion of her case with Dr. Stafford, including differential diagnosis and treatment options. History of Present Illness Reason for Consultation: 88-year-old, who I was asked to see at the request of Dr. Bain, for neurologic consultation regarding episodes of vision loss. Requesting Physician: Dr. Bain Attending Physician: Alverto Stafford MD History of Present Illness Patient has a history of vision issues dating back many years. She has worn contact lenses bilaterally since age 8. She had a stigmatism and myopia. For the last 15 years, the patient has had glaucoma right greater than left thigh has been seeing ophthalmologists, prop drawer, and retinal specialist. She uses eye drops. Sometime around then she had Lasix surgery so that she uses her left eye to see near and her right eye to see far. She had been doing well with her eyes with stable pressures recently. In 2009 she had bilateral cataract surgery. In the early fall she was evaluated and apparently had unremarkable laboratory studies. (These were done at [facility] am not certain what they were. She was noted to have an ovarian cyst and this was scheduled to be removed in May of 2019. In early March of 2019 she was doing yoga (she is very advanced/well practiced in yoga) and ended up injuring her left scapula and ribs. She had pain for about a month and had not had the ability to seek medical attention because she was away visiting her children. In April of 2019 she noted a left temporal tick. It was removed easily and had no rash, but she was given 2 weeks of doxycycline anyway. In May of 2019 she underwent the bilateral BSO Dr. Cesar. Around that time (late fall or early winter) she noted increased fatigue and easy fatigability. She visited primary care physician in June of 2019 and apparently had a sed rate 57. A Lyme screening test was negative She was referred to Rheumatology. 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 She was given 1 week of steroids and felt excellent with her fatigue on this treatment. The facial weakness took about 3 months to resolve. On October 11, 2019 sed rate was 87. There was concern about polymyalgia rheumatica with the sed rate and her symptoms. Serum protein electrophoresis had a slight/faint and spike I was otherwise unremarkable. JANETH was unremarkable, IgG was 996, IgG 8256, and IgM low at 35.3. She was initiated on 10 mg of prednisone in early October of 2019. This helped her fatigue significantly. By late October she started getting puffiness and some discomfort in her temples bilaterally. She was not having true headaches. On November 27 sed rate was 78. On November 29 prednisone was increased to 60 mg per day. On December 05 she underwent bilateral temporal artery biopsy by Dr. Villagomez. 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 There were no giant cells. In addition, the patient has no history over the last 6 months of arthralgias, myalgias, rashes, headaches, numbness of the limbs, weakness, balance issues, or incontinence. On the evening of December 07 patient had her 1st of several episodes of dim vision in her left eye with flashing lights lasting a minute or so. There was no eye pain and the right eye was normal. In the morning of December 08, she had an episode that lasted [address] Appiah in his office around 0900 December 08, and he saw vascular problems in the left eye after he dilated her eyes. I spoke with this prop drawer via the telephone this morning. Apparently her vision was 20/20 and she had no increased pressure. After dilation in the left eye (not the right) he saw boxcarring" diffusely in the arteries, which he believes is a sign of impending retinal artery occlusion. She was sent to the emergency room. She arrived to the emergency room at 1024 with a temperature 36.7, pulse in the 80s, respiratory rate 16, blood pressure 169/73, and O2 saturation 97%. She had no focal findings on exam and no eye symptoms when she was evaluated a ER. CBC showed elevated white count hemoglobin of 11.9 and hematocrit 35.8. Number increased neutrophils. Chem profile was unremarkable although the glucose was elevated at 146. Urinalysis was unremarkable. Chest x-ray was unremarkable CT scan of the head was unremarkable. CT angiography of the head neck showed some minor stenosis less than 50% and the carotid bulbs bilaterally and some multifocal luminal narrowing in the vertebral arteries bilaterally which could be consistent with arteritis. Although this was not specifically mention in the report I talked to Dr. Nash this morning (who read that film) and he concurs. The was no evidence of arteritis in head vessels. MRI of the brain was largely unremarkable with no acute or chronic stroke. Given her age of 68 she surprisingly had little in the way of small vessel ischemic disease. I reviewed these films with Dr. Nash as well. She had another brief episode of vision dimming and spots in her vision in the left eye around the time of the MRI yesterday and at 1 in the morning this morning after the MRI. She did well with no further episodes until 9 o'clock this morning while I was interviewing her. She had the sudden onset of dimming in her left eye was a little bit of flashing lights. The worst that lasted 1-2 minutes but there was some residual. She could see well out of the eye otherwise. The right eye was asymptomatic and there was no pain or headache. By 5 minutes she said she was back to normal and had no additional problems. Repeat labs this morning showed a glucose of 122 and a white count of 14. Hemoglobin A1c was 6.1 and total cholesterol 207 with a triglyceride of 112. Cardiac rhythm showed sinus with some PVCs and 1st degree AV block in the 60s. Allergies Allergy/AdvReac Type Severity Reaction Status Date / Time nickel Allergy Mild Redness of Verified 12/09/19 12:02 Skin Beta-Blockers AdvReac Intermediate Hypotension Verified 12/09/19 12:02 (Beta-Adrenergic Bloc brimonidine [From Combigan] AdvReac Intermediate Hypotension Verified 12/09/19 12:02 dorzolamide [From Cosopt] AdvReac Intermediate Hypotension Verified 12/09/19 12:02 timolol [From Combigan] AdvReac Intermediate Hypotension Verified 12/09/19 12:02 MSG Allergy Intermediate HEAD Uncoded 12/09/19 12:02 CONGESTION Home Medications Home Medications Medication Instructions Recorded Confirmed Type multivitamin 1 tab PO QAM 03/29/19 12/09/19 History Azopt 1 drp OPR TID 05/22/19 12/09/19 History Vyzulta 1 drp OPB HS 05/22/19 12/09/19 History cholecalciferol (vitamin D3) 5,000 unit PO QAM 05/22/19 12/09/19 History [Vitamin D3] cyanocobalamin (vitamin B-12) 1,000 mcg PO QAM 05/22/19 12/09/19 History [Vitamin B-12] aspirin [Aspirin Low Dose] 81 mg PO HS 07/19/19 12/09/19 History omega-3 acid ethyl esters 1 cap PO QAM 07/19/19 12/09/19 History prednisone 60 mg PO QAM 12/05/19 12/09/19 History Magnesium Malate 1 cap PO BID 12/09/19 12/09/19 History acetaminophen [Tylenol 8 Hour] 650 mg PO Q12H PRN 12/09/19 12/09/19 History Patient History Medical History Quesada's palsy DX 06/2019 Borderline high cholesterol Glaucoma RT EYE PMR (polymyalgia rheumatica) RBBB NO SYNCOPAL EPISODE Surgical History H/O ovarian cystectomy RT History of colonoscopy History of colposcopy History of D&C History of loop electrical excision procedure (LEEP) History of tooth extraction Hx of LASIK Family History Grandmother (Paternal) Breast cancer Mother , 06/05 of stroke Stroke Father Family hx colonic polyps Coronary heart disease Social History Preferred Language: Northern Irish Communication Ability: Effective Clinical Trial Data Manager Required: No Beliefs That Will Affect Care: None marital status: Current Living Situation: Spouse current occupational status: retired 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 Other Information That Helps Us Care for You: No Feels Safe at Home: Yes Safety Concerns: Feels Safe At This Time Smoking Status: Never smoker Second Hand Exposure: No ; Hx Alcohol Use: Yes Alcohol type: wine Alcohol Intake Frequency Comment: Less than 1 drink per week Hx Substance Use: No Review of Systems Constitutional: no fever, no body aches, no fatigue, no weakness and no weight loss Eyes: + seeing flashes (Left eye in episodes) and + worsening vision (Left eye in episodes); no diplopia and no eye pain Ear, Nose, Mouth, Throat: no ear pain, no tinnitus, no hearing loss, no dizziness, no hoarseness and no dysphagia Respiratory: no cough and no dyspnea Cardiovascular: no chest pain, no palpitations and no lightheadedness Gastrointestinal: no abdominal pain, no nausea and no vomiting Genitourinary: no dysuria, no urinary frequency and no urinary incontinence Musculoskeletal: no back pain, no neck pain, no radicular pain, no joint pain and no myalgia Integumentary: no rash and no lesions Neurologic: no gait abnormality, no localized weakness, no generalized weakness, no tingling, no numbness, no tremor(s), no abnormal movements, no headache(s), no abnormal speech, no confusion and no memory loss Psychiatric: no depression, no irritability, no anxiety, no difficulty concentrating, no confusion and no hallucinations Endocrine: no fatigue and no flushing Hematologic / Lymphatic: no easy bleeding and no easy bruising Allergy / Immunological: no urticaria and no problem reported Exam (Neuro) Physical Exam: The patient is right-handed. The patient is awake, alert, and attentive. Speech is normal without any aphasia or dysarthria. She can name objects, repeat phrases, and has normal spontaneous speech. Mentation and thought processes are intact, with orientation to person, place and time, and normal fund of knowledge. Attention and concentration are normal. Mood and affect are normal and appropriate. General appearance and grooming are normal. Short and long-term memory are intact. The discs are sharp with positive venous pulsations bilaterally. There are no ex udates, hemorrhages, or blood vessel changes seen. Pupils are 3 mm bilaterally and reactive to light. Extraocular eye muscles are intact without nystagmus. Visual acuity and visual spence seem normal grossly to confrontation. There are no deficits to sensation in the face in all 3 distributions of the fifth cranial nerve bilaterally. Corneal reflexes are positive bilaterally. Facial strength and symmetry was normal bilaterally. Hearing seems normal to whisper and finger rub bilaterally. Palate moves well without asymmetry. There is normal sternocleidomastoid and trapezius (shoulder shrug) strength bilaterally. Tongue is midline with good strength bilaterally. Neck has a full range of motion without discomfort. There are no cervical bruits bilaterally. There are no cranial or ocular bruits. Heart is without murmur. There is a regular rhythm and rate. Cervical, thoracic, and lumbar spine are nontender to palpation. Gait is narrow based, with good arm swing, turns, and stance. Balance is normal eyes open or closed. With outstretched arms there is no drift. There are no resting, postural, or action tremors. There is no ataxia with finger to nose testing. There is good facility in the hands. No other abnormal involuntary movements are noted. Motor strength is 5/5 diffusely in the arms bilaterally including deltoids, biceps, triceps, brachioradialis, wrist flexors and extensors, parking patroller, and intrinsic hand muscles. Motor strength is 5/5 diffusely in the legs bilaterally including hip flexors, quadriceps, hamstrings, gastrocnemius, tibialis anterior, tibialis posterior, and Peroneii muscles. Toe extensors are normal and there is good bulk in the extensor digitorum brevis muscles bilaterally. The limbs have good tone without rigidity or spasticity. There is no atrophy no ga in the muscles. Muscle bulk is normal, there is no tenderness to palpation, no myotonia to percussion, and no fasciculations seen. Sensory examination is intact to touch and pin throughout all 4 limbs diffusely. Reflexes are 2/4 in the biceps, triceps, brachioradialis, quadriceps, and Achilles tendons bilaterally. There is no clonus bilaterally. Toes are downgoing with plantar stimulation bilaterally. Peripheral pulses are present and of normal quality distally in all 4 limbs. There is no peripheral edema noted in the limbs. Results & Data ([facility]) Vital Signs (Past 12 Hours) Vital Signs Temp Pulse Resp BP Pulse Ox 12/10/19 07:08 36.9 C 48 L 18 144/68 H 96 12/10/19 03:00 36.4 C L 63 18 130/77 97 12/09/19 23:39 36.4 C L 56 L 14 142/69 H 97 Diagnostic Findings MRI OF THE BRAIN WITHOUT CONTRAST CLINICAL HISTORY: Left central retinal artery occlusion ?CVA COMPARISON STUDY: CT scan dated 12/09/2019, MRI dated 10/01/2016 FINDINGS: Sagittal T1, axial diffusion, proton density and T2 weighted axial, coronal FLAIR, and axial T1-weighted images were acquired. No intra or extra-axial mass lesions are visualized Axial diffusion-weighted images reveal no evidence of acute or subacute infarction. There is no evidence of ventricular dilatation. Proton density T2-weighted and FLAIR images reveal no significant intraparenchymal signal abnormalities. There is a stable 5 mm T1 and T2 bright lesion within the right parietal calvarium. This is of doubtful acute clinical significance. There are no abnormal flow voids. IMPRESSION: 1. No acute intracranial findings 2. No evidence of acute or subacute infarction 2. No evidence of intracranial mass. ACT 112: Negative or not required by law. Electronically signed by: Dayron Potter M.D. 12/10/2019 7:43 AM PG Care Time/CCT Total # of Minutes Spent Total Time Spent with Patient: Total time spent is greater than 50% in coordination of care (as documented) at patient's floor/unit and/or counseling patient: Coding Level of Care Code 90229 Initial Inpt Care Lvl 3 Diagnoses Loss of vision H54.7 Vasculitis I77.6 Time Spent (min) [place] [address] [place] [address] to this [address]
[2019-12-10] MEDS ORDERED: CLOPIDOGREL BISULFATE 75 MG TAB PO ONE (10:15)
[2019-12-10] MEDS: SODIUM CHLORIDE 0.9% 1000ML 1,000 ML IV SCH (10:39)
[2019-12-10] MEDS ORDERED: methylPREDNISolone 1,000 MG in DEXTROSE 5% 250 ML IV SCH (11:00)
--- NOTE | 2019-12-10 12:03 | XCELERA ---
[id number]
--- NOTE | 2019-12-10 12:28 | Electrocardiogram Report ---
Test Reason : Blood Pressure : / mmHG Vent. Rate : 074 BPM Atrial Rate : 074 BPM P-R Int : 132 ms QRS Dur : 130 ms QT Int : 420 ms P-R-T Axes : 071 -87 028 degrees QTc Int : 466 ms Normal sinus rhythm with sinus arrhythmia Right bundle branch block Left anterior fascicular block Bifascicular block Abnormal ECG When compared with ECG of 19-JUL-2019 10:18, No significant change was found Confirmed by Jet Hammond ([id number]) on 12/10/2019 12:28:03 PM Referred By: REFERRED SELF Confirmed By:Sabas Hammond
[2019-12-10] MEDS ORDERED: MAGNESIUM HYDROXIDE SUSP 30 ML UDC PO ONE (13:21)
[2019-12-10] MEDS ORDERED: ATROPINE SULFATE 0.1 MG/ML 10ML SYR IV ONE (15:07)
[2019-12-10] MEDS: ENOXAPARIN INJ 40 MG/0.4 ML SYR SQ SCH (20:55)
[2019-12-10] MEDS: ASPIRIN 81 MG ECTAB PO SCH (20:56)
[2019-12-10] MEDS: VYZULTA OP SCH (20:56)
[2019-12-10] MEDS ORDERED: POLYETHYLENE (MIRALAX) 17 GM PACK PO PRN (21:13)
[2019-12-10] MEDS ORDERED: MAGNESIUM HYDROXIDE SUSP 30 ML UDC PO PRN (21:14)
[2019-12-10] MEDS ORDERED: MAGNESIUM CITRATE 296 ML/BTL PO STA ×3 (21:36→21:42)
[2019-12-11] MEDS ORDERED: STROKE PATIENT DISCHARGE PRN (07:42)
[2019-12-11] MEDS: CHOLECALCIFEROL 1,000 UNITS 25 MCG TAB PO SCH (07:49)
[2019-12-11] MEDS: OMEGA-3 (PURIFIED FISH OIL) 1 GM CAP PO SCH (07:49)
[2019-12-11] MEDS: CYANOCOBALAMIN 500 MCG TABLET (VITAMIN B-12) PO SCH (07:51)
[2019-12-11] MEDS: PANTOprazole 40 MG TAB PO SCH (07:51)
[2019-12-11] MEDS: AZOPT OPR SCH (07:51)
[2019-12-11] MEDS: MULTIVITAMIN TAB PO SCH (07:52)
[2019-12-11] MEDS: NYSTATIN SUSP 500,000 U/5 ML UDC PO SCH ×2 (07:52→11:36)
[2019-12-11 07:53] LABS: Basophils # (auto) 0.01 K/uL (0-0.2); Basophils % (auto) 0.1 %; Hematocrit (blood only) 33.2 % (37-47); Hemoglobin 10.8 g/dL (12.0-16.0); Immature Granulocytes # (auto) 0.08 K/uL (0.00-0.02); Immature Granulocytes % (auto) 0.5 %; Lymphocytes % (auto) 10.6 %; Mean Corpuscular Hemoglobin 28.5 pg (25-34); Mean Corpuscular Hgb Conc 32.5 g/dL (32-36); Mean Corpuscular Volume 87.6 fL (80-100); Monocytes % (auto) 6.9 %; Neutrophils # (auto) 13.15 K/uL (1.4-6.5); Neutrophils % (auto) 81.9 %; Platelet Count 434 K/uL (130-400); RDW Coefficient of Variation 14.6 % (11.5-14.5); RDW Standard Deviation 46.3 fL (36.4-46.3); Red Blood Count 3.79 M/uL (4.2-5.4); White Blood Count 16.04 K/uL (4.8-10.8)
[2019-12-11] MEDS: DOCUSATE SODIUM 100 MG CAP PO SCH (07:53)
[2019-12-11 08:27] LABS: BUN Creatinine Ratio 23.2 (10-20); Calcium 9.2 mg/dl (8.5-10.1); Creatinine Clr Calc Pharmacy 72.7 ml/min; Est GFR (African American) 101.7; Est GFR (Non-African American) 87.8; Potassium 3.7 mmol/L (3.5-5.1)
[2019-12-11] MEDS ORDERED: CLOPIDOGREL BISULFATE 75 MG TAB PO SCH (09:00)
--- NOTE | 2019-12-11 09:03 | Pharmacy Report ---
Pharmacist Stroke Counseling - Date of Service December 11, 2019 - Scope: Pharmacy has been consulted to provide medication discharge counseling for this patient admitted with [ischemic stroke] [hemorrhagic stroke] [transient ischemic attack] as per the Pharmacist Discharge Counseling for Stroke Patients Xavier whaley - Medications on Discharge: Home Medications Medication Instructions Recorded Confirmed multivitamin 1 tab PO QAM 03/29/19 12/09/19 Azopt 1 drp OPR TID 05/22/19 12/09/19 Vyzulta 1 drp OPB HS 05/22/19 12/09/19 cholecalciferol (vitamin D3) 5,000 unit PO QAM 05/22/19 12/09/19 [Vitamin D3] cyanocobalamin (vitamin B-12) 1,000 mcg PO QAM 05/22/19 12/09/19 [Vitamin B-12] aspirin [Aspirin Low Dose] 81 mg PO HS 07/19/19 12/09/19 omega-3 acid ethyl esters 1 cap PO QAM 07/19/19 12/09/19 Magnesium Malate 1 cap PO BID 12/09/19 12/09/19 acetaminophen [Tylenol 8 Hour] 650 mg PO Q12H PRN 12/09/19 12/09/19 New Rx's Medication Instructions Recorded clopidogrel 75 mg PO QAM #30 tab 12/11/19 prednisone 60 mg PO QAM #60 tab 12/11/19 - Action: The above medications, specifically ones for stroke treatment/prophylaxis, have been reviewed in detail with the patient prior to discharge. This includes indication, common adverse reactions, drug interactions, and medication administration. Medication counseling has been employed using the teach-back method to ensure understanding. - Outcome: The patient have demonstrated understanding of the medications. Additional comments: -reviewed Plavix and aspirin -per Rivera's note, patient defers statin therapy unless stroke diagnosed. Thank you for allowing pharmacy to be involved in the care of this patient. Please call [phone] with any additional questions
[2019-12-11] MEDS ORDERED: methylPREDNISolone 1,000 MG in DEXTROSE 5% 250 ML IV SCH (11:00)
--- NOTE | 2019-12-11 11:15 | Discharge Summary ---
Date of Service December 11, 2019 Admission HPI Per Admitting Provider Kymberly Colunga is a 68 year old female who presents to the ER on the advice of her trim line worker (Dr Appiah) and rf design engineer (Dr Salmon) with left sided vision loss with diagnosis of left retinal artery occlusion on slit lamp examination at her ophthalmology appointment today. Patient has a complex history but regarding the vision loss this is intermittent. Lasts for 5-15 minute spells. Just in her left eye. First episode at 5pm yesterday. Starts with an "aura", then notes her vision dims to complete blackness, she then has "firecrackers" in her vision and it dramatically returns to her baseline. She currently has no vision loss when seen in the ER. She denies any associated hearing or speech changes. No facial droop, extremity weakness or change in sensation. Last night she called her trim line worker and recommended calling again in the morning and went in for a visit. On arrival all her vision was normal for the first 30 minutes. As soon as her eyes were dilated her symptoms started again. As per note with the patient. Dr Appiah noted clots in the retinal arteries and findings consistent with central retinal artery occlusion. He discussed with Dr Salmon and advised coming to the ER. As per discussion with the ER physician with Dr Salmon. Plan is to treat with high dose IV steroids as patient already taking 60mg prednisone. Of note she does have a history of Lasik surgery and has monocular vision using her left eye for near sited reading and right eye for distance. As a background she has a recent history of a number of events leading up to this. Initially she had a Yoga injury in March while twisting and had ongoing thoracic back pain which never went away since then. Initially underwent PT without improvement. Followed up with Dr Holguin in June and arranged for rheumatology appointment. By the time she followed up with Dr Salmon in September she was feeling significantly fatigued with associated stiffness and elevated ESR therefore advised to start on prednisone due to concern for PMR. She waiting until mid October to start this as she was concerned about the side effects. This helped her fatigue and stiffness but then started feeling bumps on her arteries on left pentecostalism. She discussed with Dr Gomez over the phone who returned her message and therefore started her on prednisone 60mg PO daily which she has been taking since November 29 and set up for temporal artery biopsy. This was performed on December [address] Villagomez with pathology in EHR showing massive transmural and surrounding inflammation of both left and right biopsies with eosinophilia. Interestingly she has not history of asthma or serum eosinophilia. She does note following up virtually with Dr Salmon regarding these results and had lab work on Tuesday but results of this are not back yet and I do not have the details on the exact lab work performed. As a side note she also had a tick bite in April in [place], treated with 2 weeks of doxycyline at that time and also given TDap at an urgent care, unclear if this was related to her muscle pains above as it all happened around the same time. She was also having intermittent right sided abdominal pain in March and subsequent workup showed large ovarian cyst which was subsequently operated on in May by Dr Cesar. This was benign on pathology. 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 Discharge Data Allergies Allergy/AdvReac Type Severity Reaction Status Date / Time nickel Allergy Mild Redness of Verified 12/09/19 12:02 Skin Beta-Blockers AdvReac Intermediate Hypotension Verified 12/09/19 12:02 (Beta-Adrenergic Bloc brimonidine [From Combigan] AdvReac Intermediate Hypotension Verified 12/09/19 12:02 dorzolamide [From Cosopt] AdvReac Intermediate Hypotension Verified 12/09/19 12:02 timolol [From Combigan] AdvReac Intermediate Hypotension Verified 12/09/19 12:02 MSG Allergy Intermediate HEAD Uncoded 12/09/19 12:02 CONGESTION Consultations 12/09/19 15:50 Consult Case Management - Discharge Planning Routine Consult Neurology Routine 12/10/19 13:30 Consult Nutrition Routine Ordered Studies 12/09/19 10:27 CT angio head w con Stat CT angio neck with con Stat CT head/brain wo con Stat 12/09/19 15:50 MR brain wo con Routine Hospital Course (1) CRAO (central retinal artery occlusion): CRAO ruied out, consider vasculitis and vasospasm Plavix 300mg loading dose and now continue on 75 mg a day Hold off statin as after discussion the pt does not wish to be on a statin unless stroke is confirmed HbA1C 6.1--> caution with a rise while on steroids, Rheumatology will try to transition to a biologic agent as soon as able MRI brain 6/15/20 IMPRESSION: 1. No acute intracranial findings 2. No evidence of acute or subacute infarction 2. No evidence of intracranial mass CTA 12/07/19 IMPRESSION: 1. No aneurysm, dissection, high-grade stenosis or proximal branch occlusion. 2. Moderate multifocal luminal narrowing of the vertebral arteries. 3. Mild mixed plaque of the carotid bulbs and proximal internal carotid arteries results in less than 50% stenosis bilaterally. TTE pending Consult neurology feels this is still more consistent with vasculitis and possible vasospasm, no other new recommendation at this time (2) Vasculitis: Methylprednisone 1g IV daily x 3 days BSG ACHS while on high dose steroids Follow up outpatient labs I spoke with Dr Salmon recommending 1 gm a day for 3 days then 60 mg prednisone a day (3) Loss of vision: Intermittent, resolved (4) Glaucoma: Continue routine meds (5) Bifascicular block: Discharge Plan Discharge Items Patient Disposition: Home - Self-Care Reason For Visit: VASCULITIS, CENTRAL RETINAL ARTERY OCCLUSION Discharge Diagnosis: vasculitis, amaurosis fugax Activity: Resume your previous activity Non-emergency contact: Primary Care Provider and Specialist Call non-emergency contact if: you have any medication questions and your symptoms worsen Follow-up/Referrals: Kingsley Holguin MD [Primary Care Provider] - Diet: Heart Healthy Addtl Attending Provider Instructions: please start taking your prednisone 60 mg a day on 12/12/[address] Vazquez office connects with you to see you in the next 1-2 weeks, as well as your opthamologists office Pending Studies at Discharge: No Stand-Alone Forms: Medications to Prevent Stroke, My [facility], Smoking Cessation Medications and DC Order Prescriptions: New clopidogrel 75 mg Tablet 75 mg PO QAM Qty: 30 RF: 3 Continued multivitamin [Daily Multi-Vitamin] tablet 1 tab PO QAM RF: 0 cyanocobalamin (vitamin B-12) [Vitamin B-12] 1,000 mcg Tablet 1,000 mcg PO QAM RF: 0 cholecalciferol (vitamin D3) [Vitamin D3] 125 mcg (5,000 unit) Tablet 5,000 unit PO QAM RF: 0 Vyzulta 0.024 % Drops 1 drp OPB HS RF: 0 Azopt 1 % Drops,Suspension 1 drp OPR TID RF: 0 aspirin [Aspirin Low Dose] 81 mg Tablet,Delayed Release (Dr/Ec) 81 mg PO HS RF: 0 omega-3 acid ethyl esters 1 gram Capsule 1 cap PO QAM RF: 0 Magnesium Malate 1 cap PO BID RF: 0 acetaminophen [Tylenol 8 Hour] 650 mg Tablet Extended Release 650 mg PO Q12H PRN (Reason: Pain) RF: 0 prednisone 20 mg Tablet 60 mg PO QAM Qty: 60 RF: 0 Discharge Orders: Discharge Order (Routine); Ordered 12/11/19 Ordered By: Alverto Tejada/Other Patient Handouts: A1C Admission Data Admit Date/Time: 12/09/19 13:57 Attending Provider: Alverto Stafford Admit Provider: Delvin Bain Primary Care Provider: Kingsley Holguin Other Providers: Madhu Cobb ; Alverto Stafford Other Interventions: Discharge Summary Assessment (RN) Last Done: 12/11/19 08:01 DC Date/Time DO NOT enter until pt leaves facility: 12/11/19 12:33 Coding Diagnoses CRAO (central retinal artery occlusion) H34.10 Vasculitis I77.6 Loss of vision H54.7 Glaucoma H40.9 Bifascicular block I45.2
--- NOTE | 2019-12-11 16:05 | Discharge Summary ---
Date of Service December 11, 2019 Admission HPI Per Admitting Provider Kymberly Colunga is a 68 year old female who presents to the ER on the advice of her brim raiser (Dr Appiah) and parks worker (Dr Salmon) with left sided vision loss with diagnosis of left retinal artery occlusion on slit lamp examination at her ophthalmology appointment today. Patient has a complex history but regarding the vision loss this is intermittent. Lasts for 5-15 minute spells. Just in her left eye. First episode at 5pm yesterday. Starts with an "aura", then notes her vision dims to complete blackness, she then has "firecrackers" in her vision and it dramatically returns to her baseline. She currently has no vision loss when seen in the ER. She denies any associated hearing or speech changes. No facial droop, extremity weakness or change in sensation. Last night she called her brim raiser and recommended calling again in the morning and went in for a visit. On arrival all her vision was normal for the first 30 minutes. As soon as her eyes were dilated her symptoms started again. As per note with the patient. Dr Appiah noted clots in the retinal arteries and findings consistent with central retinal artery occlusion. He discussed with Dr Salmon and advised coming to the ER. As per discussion with the ER physician with Dr Salmon. Plan is to treat with high dose IV steroids as patient already taking 60mg prednisone. Of note she does have a history of Lasik surgery and has monocular vision using her left eye for near sited reading and right eye for distance. As a background she has a recent history of a number of events leading up to this. Initially she had a Yoga injury in March while twisting and had ongoing thoracic back pain which never went away since then. Initially underwent PT without improvement. Followed up with Dr Holguin in June and arranged for rheumatology appointment. By the time she followed up with Dr Salmon in September she was feeling significantly fatigued with associated stiffness and elevated ESR therefore advised to start on prednisone due to concern for PMR. She waiting until mid October to start this as she was concerned about the side effects. This helped her fatigue and stiffness but then started feeling bumps on her arteries on left sikh. She discussed with Dr Gomez over the phone who returned her message and therefore started her on prednisone 60mg PO daily which she has been taking since November 29 and set up for temporal artery biopsy. This was performed on December [address] Villagomez with pathology in EHR showing massive transmural and surrounding inflammation of both left and right biopsies with eosinophilia. Interestingly she has not history of asthma or serum eosinophilia. She does note following up virtually with Dr Salmon regarding these results and had lab work on Tuesday but results of this are not back yet and I do not have the details on the exact lab work performed. As a side note she also had a tick bite in April in [place], treated with 2 weeks of doxycyline at that time and also given TDap at an urgent care, unclear if this was related to her muscle pains above as it all happened around the same time. She was also having intermittent right sided abdominal pain in March and subsequent workup showed large ovarian cyst which was subsequently operated on in May by Dr Cesar. This was benign on pathology. 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 Principal Diagnosis vasculitis amaurosis fugax Discharge Exam The patient appeared well Vital signs as documented. Lungs are clear to auscultation and appear unlabored Cardiac exam, Rhythm is regular.. No murmurs, rubs or gallops. Abdominal exam reveals normal bowel sounds, soft non tender, no masses Extremities are nonedematous and both pedal pulses are normal. Neurologic exam is alert and oriented, no focal loss of strength or sensation Skin is without bruises or rashes Psychologically is without concerns for anxiety or depression Discharge Data Allergies Allergy/AdvReac Type Severity Reaction Status Date / Time nickel Allergy Mild Redness of Verified 12/09/19 12:02 Skin Beta-Blockers AdvReac Intermediate Hypotension Verified 12/09/19 12:02 (Beta-Adrenergic Bloc brimonidine [From Combigan] AdvReac Intermediate Hypotension Verified 12/09/19 12:02 dorzolamide [From Cosopt] AdvReac Intermediate Hypotension Verified 12/09/19 12:02 timolol [From Combigan] AdvReac Intermediate Hypotension Verified 12/09/19 12:02 MSG Allergy Intermediate HEAD Uncoded 12/09/19 12:02 CONGESTION Consultations 12/09/19 15:50 Consult Case Management - Discharge Planning Routine Consult Neurology Routine 12/10/19 13:30 Consult Nutrition Routine Ordered Studies 12/09/19 10:27 CT angio head w con Stat CT angio neck with con Stat CT head/brain wo con Stat 12/09/19 15:50 MR brain wo con Routine Hospital Course (1) CRAO (central retinal artery occlusion): CRAO ruied out, consider vasculitis and vasospasm Plavix 300mg loading dose and now continue on 75 mg a day Hold off statin as after discussion the pt does not wish to be on a statin unless stroke is confirmed HbA1C 6.1--> caution with a rise while on steroids, Rheumatology will try to transition to a biologic agent as soon as able MRI brain 12/10/19 IMPRESSION: 1. No acute intracranial findings 2. No evidence of acute or subacute infarction 2. No evidence of intracranial mass CTA 12/07/19 IMPRESSION: 1. No aneurysm, dissection, high-grade stenosis or proximal branch occlusion. 2. Moderate multifocal luminal narrowing of the vertebral arteries. 3. Mild mixed plaque of the carotid bulbs and proximal internal carotid arteries results in less than 50% stenosis bilaterally. TTE pending Consult neurology feels this is still more consistent with vasculitis and po ssible vasospasm, no other new recommendation at this time (2) Vasculitis: Methylprednisone 1g IV daily x 3 days Follow up outpatient labs I spoke with Dr Salmon recommending 1 gm a day for 3 days then 60 mg prednisone a day (3) Loss of vision: Intermittent, resolved recommend follow up with Dr Appiah (4) Glaucoma: Continue routine meds (5) Bifascicular block: Total Time Total Time Spent Total Time Spent (In Minutes): It required greater than 30 minutes to prepare this patient for discharge Discharge Plan Discharge Items Patient Disposition: Home - Self-Care Reason For Visit: VASCULITIS, CENTRAL RETINAL ARTERY OCCLUSION Discharge Diagnosis: vasculitis, amaurosis fugax Activity: Resume your previous activity Non-emergency contact: Primary Care Provider and Specialist Call non-emergency contact if: you have any medication questions and your symptoms worsen Follow-up/Referrals: Kingsley Holguin MD [Primary Care Provider] - Diet: Heart Healthy Addtl Attending Provider Instructions: please start taking your prednisone 60 mg a day on 12/12/[address] Vazquez office connects with you to see you in the next 1-2 weeks, as well as your opthamologists office Pending Studies at Discharge: No Stand-Alone Forms: Medications to Prevent Stroke, My [facility], Smoking Cessation Medications and DC Order Prescriptions: New clopidogrel 75 mg Tablet 75 mg PO QAM Qty: 30 RF: 3 Continued multivitamin [Daily Multi-Vitamin] tablet 1 tab PO QAM RF: 0 cyanocobalamin (vitamin B-12) [Vitamin B-12] 1,000 mcg Tablet 1,000 mcg PO QAM RF: 0 cholecalciferol (vitamin D3) [Vitamin D3] 125 mcg (5,000 unit) Tablet 5,000 unit PO QAM RF: 0 Vyzulta 0.024 % Drops 1 drp OPB HS RF: 0 Azopt 1 % Drops,Suspension 1 drp OPR TID RF: 0 aspirin [Aspirin Low Dose] 81 mg Tablet,Delayed Release (Dr/Ec) 81 mg PO HS RF: 0 omega-3 acid ethyl esters 1 gram Capsule 1 cap PO QAM RF: 0 Magnesium Malate 1 cap PO BID RF: 0 acetaminophen [Tylenol 8 Hour] 650 mg Tablet Extended Release 650 mg PO Q12H PRN (Reason: Pain) RF: 0 prednisone 20 mg Tablet 60 mg PO QAM Qty: 60 RF: 0 Discharge Orders: Discharge Order (Routine); Ordered 12/11/19 Ordered By: Alverto Tejada/Other Patient Handouts: A1C Admission Data Admit Date/Time: 12/09/19 13:57 Attending Provider: Alverto Stafford Admit Provider: Delvin Bain Primary Care Provider: Kingsley Holguin Other Providers: Madhu Cobb ; Alverto Stafford Other Interventions: Discharge Summary Assessment (RN) Last Done: 12/11/19 08:01 DC Date/Time DO NOT enter until pt leaves facility: 12/11/19 12:33 Coding Level of Care Code D/C Day Management >30 mins Diagnoses CRAO (central retinal artery occlusion) H34.10 Vasculitis I77.6 Loss of vision H54.7 Glaucoma H40.9 Bifascicular block I45.2
== END 2019-12-11 12:33 | disposition home or self-care (01) | DRG 516 ==
LOC: ED 10:10 → SUATTDRO 13:57 → 2S 13:57